=== PATIENT | male | born 1955 | race Caucasian/White ===

== ENCOUNTER 2017-07-13 14:01 | Emergency (ER) | payer OTHER ==
[2017-07-13] MEDS: ACETAMINOPHEN 325 MG TAB PO (14:41)
== END 2017-07-13 14:50 | disposition home or self-care (01) ==
LOC: FTE 14:01
DX: J02.9 Acute pharyngitis, unspecified (principal)
CPT/HCPCS: 99283

== ENCOUNTER 2017-10-07 19:50 | Emergency (ER) | payer OTHER ==
[2017-10-07] MEDS: KETOROLAC 30 MG INJ IM (22:45)
[2017-10-07 22:52] LABS: URINE BLOOD (Dip) POC Negative (NEGATIVE); URINE GLUCOSE (Dip) POC Negative (NEGATIVE); URINE KETONES (Dip) POC Negative (NEGATIVE); URINE LEUKOCYTE EST (Dip) POC Negative (NEGATIVE); URINE NITRITE (Dip) POC Negative (NEGATIVE); URINE TOTAL PROTEIN POC Negative (NEGATIVE)
== END 2017-10-08 00:07 | disposition home or self-care (01) ==
LOC: FTE 10-08 00:07
DX: M54.5 Low back pain (principal)
CPT/HCPCS: 81003; 96372; 99284-25